=== PATIENT | male | born 1995 | race Caucasian/White ===

== ENCOUNTER 2017-03-03 17:14 | Emergency (ER) | payer BC ==
--- NOTE | 2017-03-03 17:56 | UC ---
Dental HPI - HPI Summary HPI Summary: 21 yo male with DMI presents with toothache pain kept him up last night no facial swelling or fever - History of Current Complaint Chief Complaint: UCDentalProblem Stated Complaint: DENTAL PAIN Time Seen by Provider: 03/03/17 17:52 Hx Obtained From: Patient Onset/Duration: Sudden Onset, Lasting Days Severity: Moderate Pain Intensity: 6 - worse at night Pain Scale Used: 0-10 Numeric Aggravating Factor(s): Chewing Alleviating Factor(s): OTC Meds - Allergies/Home Medications Allergies/Adverse Reactions: Allergies Allergy/AdvReac Type Severity Reaction Status Date / Time Amoxicillin [From Augmentin] Allergy Rash Verified 03/03/17 17:43 Clavulanic Acid Allergy Rash Verified 03/03/17 17:43 [From Augmentin] Penicillins Allergy Unknown Verified 07/05/14 17:16 Reaction Details Home Medications: Home Medications Acetaminophen [Tylenol] 1,000 mg PO ONCE 03/03/17 [History Confirmed 03/03/17] Insulin Aspart Protamine & Asp [Novolog Mix 70/30 Prefill (70-30) 100 Unit/ml] 1 dose INFUSION SEE INSTRUCTIONS 03/03/17 [History Confirmed 03/03/17] PMH/Surg Hx/FS Hx/Imm Hx Previously Healthy: Yes Endocrine History: Diabetes - Surgical History Surgical History: None - Family History Known Family History: Positive: Hypertension, Diabetes - Social History Alcohol Use: None Substance Use Type: None Smoking Status (MU): Never Smoked Tobacco Review of Systems Constitutional: Negative Skin: Negative Eyes: Negative ENT: Dental Pain Respiratory: Negative Cardiovascular: Negative Gastrointestinal: Negative Genitourinary: Negative Motor: Negative Neurovascular: Negative Musculoskeletal: Negative Neurological: Negative Psychological: Negative Is Patient Immunocompromised?: No All Other Systems Reviewed And Are Negative: Yes Physical Exam Triage Information Reviewed: Yes Appearance: Well-Appearing, No Pain Distress, Well-Nourished Vital Signs: Initial Vital Signs Temp 98.8 F 03/03/17 17:41 Pulse 83 03/03/17 17:41 Pulse Ox 100 03/03/17 17:41 Eye Exam: Normal Eyes: Positive: Conjunctiva Clear ENT: Positive: Hearing grossly normal, Uvula midline. Negative: Nasal drainage , TMs normal, Trismus, Muffled voice, Dental tenderness Dental: Positive: Gross Decay/Caries @ Neck: Positive: Supple, Nontender, No Lymphadenopathy Respiratory: Positive: Lungs clear, Normal breath sounds, No respiratory distress Cardiovascular Exam: Normal Cardiovascular: Positive: RRR, No Murmur Neurological: Positive: Alert Psychological Exam: Normal Skin Exam: Normal Dental Complaint Course/Dx - Differential Dx/Diagnosis Provider Diagnoses: acute dentalgia Discharge - Discharge Plan Condition: Stable Disposition: HOME Prescriptions: Clindamycin Cap(NF) [Clindamycin Cap 300 mg Cap(NF)] 300 mg PO QID #28 cap Ibuprofen TAB* [Motrin TAB*] 600 mg PO Q6H PRN #40 tab PRN Reason: Pain Patient Education Materials: Toothache (ED) Referrals: Nuzhat BROUSSARD [employer] OPERATOR,Noa [Primary Care Provider] - Additional Instructions: I suggest you see your dentist for follow up recheck for new or worsening symptoms Images Dental: 1 - chipped 2 - caries
[2017-03-03 18:08] VITALS: BP 122/65
[2017-03-03] MEDS ORDERED: Clindamycin CAP* 150 MG PO ONE (18:15)
== END 2017-03-03 18:30 | disposition home or self-care (01) ==
LOC: UCEAST 17:14
DX: K08.89 Other specified disorders of teeth and supporting structures (principal); E11.9 Type 2 diabetes mellitus without complications; Z88.0 Allergy status to penicillin; Z88.1 Allergy status to other antibiotic agents; Z79.4 Long term (current) use of insulin
CPT/HCPCS: 99212; A9270-GY; G0463

== ENCOUNTER 2017-05-19 17:26 | Emergency (ER) | payer BC ==
[2017-05-19 18:00] VITALS: BP 124/62
--- NOTE | 2017-05-19 20:15 | UC ---
Skin Complaint HPI - HPI Summary HPI Summary: Patient is a 21-year-old male presenting to the with chief complaint of right upper arm itching, small erythematous pustules with surrounding erythema and hives. Symptoms began approximately 4 days ago. He denies any changes to detergents, soaps, environment or sleeping arrangements. He states he cut a dog a few days ago but denies any other changes. He endorses itching, warmth and erythema surrounding the small pustules. Denies any other pustules to the left arm or torso or lower extremities. Denies any fevers, sweats, chills. He has never had anything like this before. He has not taken anything over-the- counter for relief. - History of Current Complaint Chief Complaint: [facility] Time Seen by Provider: 05/19/17 18:13 Stated Complaint: ALLERGIC REACTION Hx Obtained From: Patient Onset/Duration: Sudden Onset Skin Exposure Onset/Duration: Hours Ago Timing: Constant Onset Severity: Mild Current Severity: Mild Pain Intensity: 0 Pain Scale Used: 0-10 Numeric Character: Swelling, Pruritus Aggravating Factor(s): Nothing Alleviating Factor(s): Nothing Related History: Insect Bite/Sting, Possible Reaction to: Animal, Possible Reaction to: Environmental Exposure - Allergy/Home Medications Allergies/Adverse Reactions: Allergies Allergy/AdvReac Type Severity Reaction Status Date / Time amoxicillin [From Augmentin] Allergy Rash Verified 05/19/17 18:01 clavulanic acid Allergy Rash Verified 05/19/17 18:01 [From Augmentin] Penicillins Allergy Unknown Verified 05/19/17 18:01 Reaction Details Review of Systems Constitutional: Negative Skin: Rash Respiratory: Negative Cardiovascular: Negative Motor: Negative Neurovascular: Negative Neurological: Negative Psychological: Negative Is Patient Immunocompromised?: No All Other Systems Reviewed And Are Negative: Yes PMH/Surg Hx/FS Hx/Imm Hx Previously Healthy: Yes - Surgical History Surgical History: None - Family History Known Family History: Positive: Hypertension, Diabetes - Social History Occupation: Employed Full-time Lives: With Family Alcohol Use: Occasionally Substance Use Type: None Smoking Status (MU): Never Smoked Tobacco Physical Exam Triage Information Reviewed: Yes Appearance: Well-Appearing, Well-Nourished Vital Signs: Initial Vital Signs Temp 98.4 F 05/19/17 17:56 Pulse 67 05/19/17 17:56 Resp 16 05/19/17 17:56 BP 124/62 05/19/17 17:56 Pulse Ox 100 05/19/17 17:56 Vital Signs Reviewed: Yes Eye Exam: Normal Neck exam: Normal Neck: Positive: Supple, No Lymphadenopathy Respiratory Exam: Normal Respiratory: Positive: Chest non-tender Musculoskeletal Exam: Normal Musculoskeletal: Positive: Strength Intact Neurological Exam: Normal Neurological: Positive: Alert Psychological: Positive: Normal Response To Family Skin: Positive: rashes Course/Dx - Course Course Of Treatment: During the course of treatment, the patient's evaluated for possible bug bites to the right side of the arm. He states he got a last week but denies any other changes. He states the dog sleeps on the left side of him, but he is endorsing the small pustules with erythematous and warm areas surrounding to the right arm. The small pustules appear to be bug bites versus fleas versus bedbugs. I have discussed this with the patient. Due to erythema and warmth around the arm, although likely an acute local reaction, I will add on doxycycline (patient allergic to amoxicillin adjacent Keflex which is preferred) for a possible bacterial component. He is given hydroxyzine for itching. He is to cleanse the area well. Hydrocortisone [id number] topical to the area. Prednisone 50 mg once daily in the morning for inflammation and itching. Patient is okay with plan and discharge and will return for any worsening or changing symptoms. - Differential Diagnoses - Skin Complaint Differential Diagnoses: Cellulitis, Scabies - I mostly over the counter, Urticaria - Diagnoses Provider Diagnoses: Bug bites Discharge - Sign-Out/Discharge Documenting (check all that apply): Discharge - Discharge Plan Condition: Stable Disposition: HOME Prescriptions: DOXYcycline CAP(*) [DOXYcycline 100MG CAP(*)] 100 mg PO BID #10 cap hydrOXYzine HCL TAB* [Atarax 10 MG TAB*] 10 mg PO TID PRN #15 tab PRN Reason: Itching predniSONE TAB* [Deltasone TAB*] 50 mg PO DAILY #5 tab MDD 1 Patient Education Materials: Insect Bite or Sting (ED) Referrals: Noa Longo RN [Primary Care Provider] - Additional Instructions: Prednisone 50mg once daily - take in the morning Doxycycline twice daily x 5 days Hydrozyxine - 10mg up to three times daily for itching Over the counter hydrocortisone topical cream for itching - [place] Disposition and Condition Condition: STABLE Disposition: HOME
== END 2017-05-19 18:35 | disposition home or self-care (01) ==
LOC: UCEAST 17:26
DX: S40.861A Insect bite (nonvenomous) of right upper arm, initial encounter (principal); W57.XXXA Bitten or stung by nonvenomous insect and other nonvenomous arthropods, initial encounter; Y93.9 Activity, unspecified; Y92.9 Unspecified place or not applicable; Z88.1 Allergy status to other antibiotic agents; Z88.0 Allergy status to penicillin
CPT/HCPCS: 99212; G0463

== ENCOUNTER 2017-06-19 13:49 | Emergency (ER) | payer BC ==
--- NOTE | 2017-06-19 15:20 | RAD ---
INDICATION: Right shoulder injury. TECHNIQUE: 4 views of the right shoulder were obtained. FINDINGS: There is soft tissue swelling adjacent to the acromioclavicular joint. There is suggestion of mild acromioclavicular joint widening. No fracture is seen. IMPRESSION: PROBABLE MILD ACROMIOCLAVICULAR JOINT SEPARATION.
--- NOTE | 2017-06-19 15:26 | RAD ---
INDICATION: Right humerus injury. TECHNIQUE: 2 views of the right humerus were obtained. FINDINGS: The bones are in normal alignment. No fracture is seen. IMPRESSION: NO EVIDENCE FOR FRACTURE.
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
[2017-06-19 16:03] VITALS: BP 120/70
== END 2017-06-19 16:02 | disposition home or self-care (01) ==
LOC: ED 13:49
DX: S43.101A Unspecified dislocation of right acromioclavicular joint, initial encounter (principal); V86.56XA Driver of dirt bike or motor/cross bike injured in nontraffic accident, initial encounter; Y92.9 Unspecified place or not applicable
CPT/HCPCS: 99282

== ENCOUNTER 2018-01-23 18:34 | Emergency (ER) | payer BC ==
[2018-01-23 18:49] VITALS: BP 153/78
[2018-01-23] MEDS ORDERED: Azithromycin TAB* 250 MG PO ONE (19:16)
[2018-01-23] MEDS ORDERED: cefTRIAXone VIAL(*) 250 MG VIAL IM ONE (19:21)
--- NOTE | 2018-01-23 19:27 | ED ---
GI/ HPI - HPI Summary HPI Summary: 22 yr old male with the complaint of painful blisters on penis. He is not circumcised. He developed the blisters about 4-5 days ago, and then began to have dysuria. He has had cloudy urethral discharge that looks like pus as well. He was sexually active with new partner unprotected sex, vaginal sex. Denies fever, chills, back pain, abdominal pain. He has no other complaints. Pain is moderate. He has no testicular or scrotal pain. - History of Current Complaint Chief Complaint: [facility] Time Seen by Provider: 01/23/18 19:00 Stated Complaint: URINARY COMPLAINT Pain Intensity: 7 - Allergy/Home Medications Allergies/Adverse Reactions: Allergies Allergy/AdvReac Type Severity Reaction Status Date / Time amoxicillin [From Augmentin] Allergy Rash Verified 01/23/18 18:49 clavulanic acid Allergy Rash Verified 01/23/18 18:49 [From Augmentin] Penicillins Allergy Unknown Verified 01/23/18 18:49 Reaction Details PMH/Surg Hx/FS Hx/Imm Hx Endocrine/Hematology History: Reports: Hx Diabetes - type I Infectious Disease History: No Infectious Disease History: Denies: Traveled Outside the [place] in Last 30 Days - Family History Known Family History: Positive: Hypertension, Diabetes - Social History Occupation: Employed Full-time Lives: With Family Alcohol Use: None Hx Substance Use: No Substance Use Type: Reports: None Hx Tobacco Use: No Smoking Status (MU): Never Smoked Tobacco Review of Systems Constitutional: Negative Positive: dysuria, discharge, other - blister on forskin penis that are painful Positive: Rash All Other Systems Reviewed And Are Negative: Yes Physical Exam Triage Information Reviewed: Yes Vital Signs On Initial Exam: Initial Vitals Temp Pulse Resp BP Pulse Ox 98.1 F 96 20 153/78 99 01/23/18 18:43 01/23/18 18:43 01/23/18 18:43 01/23/18 18:43 01/23/18 18:43 Vital Signs Reviewed: Yes Appearance: Positive: Well-Appearing, No Pain Distress Head/Face: Positive: Normal Head/Face Inspection Eyes: Positive: EOMI ENT: Positive: Pharynx normal Neck: Positive: Nontender Respiratory/Lung Sounds: Positive: Clear to Auscultation, Breath Sounds Present Cardiovascular: Positive: RRR. Negative: Murmur Abdomen Description: Positive: Nontender Male Genital Exam: Positive: No Hernia, Urethral Discharge - yellow, Other - vesicular rash penis forskin on red base.. Negative: Epididymal Tenderness, Scrotum Tenderness (R), Scrotum Tenderness (L), Testicular Tenderness (R), Testicular Tenderness (L) Musculoskeletal: Positive: Strength/ROM Intact Neurological: Positive: Sensory/Motor Intact, Alert, Oriented to Person Place, Time, CN Intact II-III Psychiatric: Positive: Normal - [place] Coma Scale Best Eye Response: 4 - Spontaneous Best Motor Response: 6 - Obeys Commands Best Verbal Response: 5 - Oriented Coma Scale Total: 15 Diagnostics - Vital Signs Vital Signs Temp Pulse Resp BP Pulse Ox 01/23/18 18:43 98.1 F 96 20 153/78 99 - Laboratory Lab Results: Lab Results 01/23/18 Range/Units 19:03 POC Urine Color Other POC Urine Clarity Slightly cloudy POC Urine pH 6.0 (5-9) POC Ur Specif T[place]te 1.015 (1.010-1.030) POC Urine Protein 1+ A (Negative) POC Ur Glucose (UA) 3+ A (Negative) POC Urine Ketones Negative (Negative) POC Urine Blood Trace-intact A (Negative) POC Urine Nitrite Negative (Negative) POC Urine Bilirubin Negative (Negative) POC Urine Urobilinogen 0.2 (Negative) POC U Leukocyte Esteras 1+ A (Negative) Lab Statement: Any lab studies that have been ordered have been reviewed, and results considered in the medical decision making process. GIGU Course/Dx - Course Course Of Treatment: 22 yr old who has only had a rash from penicillins in the past but never IGE mediated anaphylaxis reactions. Will Rx with rocephin, zithromax, and start on valtrex. cultures pending. - Diagnoses Provider Diagnoses: Herpes genitalis in men, STD (male), Hypertension Discharge - Sign-Out/Discharge Documenting (check all that apply): Patient Departure All imaging exams completed and their final reports reviewed: No Studies - Discharge Plan Condition: Good Disposition: HOME Prescriptions: ValACYclovir (*) [Valtrex 1 GM(*)] 1 gm PO TID #21 tab Patient Education Materials: Genital Herpes Simplex (ED), Nonspecific Urethritis in Men (ED), Sexually Transmitted Diseases (ED), Hypertension (ED) Referrals: Noa Longo RN [Primary Care Provider] - 2 Days - Billing Disposition and Condition Condition: GOOD Disposition: Home
== END 2018-01-23 19:58 | disposition home or self-care (01) ==
LOC: UCCORT 18:34
DX: A60.01 Herpesviral infection of penis (principal); A64 Unspecified sexually transmitted disease; I10 Essential (primary) hypertension; E10.8 Type 1 diabetes mellitus with unspecified complications; Z88.8 Allergy status to other drugs, medicaments and biological substances; Z88.0 Allergy status to penicillin
CPT/HCPCS: 81003; 87086; 87491; 87591; 87661; 96372; 99212; A9270-GY; G0463; J0696

== ENCOUNTER 2018-01-30 20:46 | Emergency (ER) | payer BC ==
--- NOTE | 2018-01-30 20:49 | UC ---
Complaint Male HPI - HPI Summary HPI Summary: 22 yo male presents with continued discomfort during urination and raw/redness at the tip of his penis and foreskin. He was seen 1 week ago and dx'd with herpes and treated for gc/c. His urine culture showed no growth and was negative for GC/C and trich. He was also treated for herpes with antivirals as the red lesions appeared to herpes in nature. He tells me today that his symptoms have not changed and took an "at home UTI test" that was positive. He denies fever, chills, hematuria, abdominal pain, n/v, testicular pain. - History of Current Complaint Stated Complaint: POSS UTI Time Seen by Provider: 01/30/18 20:49 Hx Obtained From: Patient Onset/Duration: Gradual Onset Severity Initially: Mild Severity Currently: Mild Pain Intensity: 2 Pain Scale Used: 0-10 Numeric - Allergies/Home Medications Allergies/Adverse Reactions: Allergies Allergy/AdvReac Type Severity Reaction Status Date / Time amoxicillin [From Augmentin] Allergy Rash Verified 01/30/18 20:53 clavulanic acid Allergy Rash Verified 01/30/18 20:53 [From Augmentin] Penicillins Allergy Unknown Verified 01/30/18 20:53 Reaction Details PMH/Surg Hx/FS Hx/Imm Hx Endocrine History: Diabetes - Surgical History Surgical History: None - Family History Known Family History: Positive: Hypertension, Diabetes - Social History Lives: With Family Alcohol Use: None Substance Use Type: None Smoking Status (MU): Never Smoked Tobacco Review of Systems All Other Systems Reviewed And Are Negative: Yes Constitutional: Positive: Negative Skin: Positive: Negative Respiratory: Positive: Negative Cardiovascular: Positive: Negative Gastrointestinal: Positive: Negative Genitourinary: Positive: Dysuria, Vaginal/Penile Discharge, Vaginal/Penile Pain Neurovascular: Positive: Negative Neurological: Positive: Negative Psychological: Positive: Negative Physical Exam - Summary Physical Exam Summary: GENERAL: NAD. WDWN. No pain distress. NECK: Supple. Nontender. No lymphadenopathy. CHEST: CTAB. No r/r/w. No accessory muscle use. Breathing comfortably and in no distress. CV: RRR. Without m/r/g. Pulses intact. Cap refill <2seconds ABDOMEN: Soft. NTTP. No distention or guarding. Bowel sounds present NEURO: Alert. PSYCH: Age appropriate behavior. Triage Information Reviewed: Yes Vital Signs: Vital Signs: Temp Pulse Resp BP Pulse Ox 98.6 F 90 18 151/73 97 01/30/18 20:50 01/30/18 20:50 01/30/18 20:50 01/30/18 20:50 01/30/18 20:50 Laboratory Tests 01/30/18 20:58 POC Urine Color Yellow POC Urine Clarity Clear POC Urine pH 5.5 POC Ur Specif [place] 1.010 POC Urine Protein Negative POC Ur Glucose (UA) 1+ A POC Urine Ketones Negative POC Urine Blood Trace-intact A POC Urine Nitrite Negative POC Urine Bilirubin Negative POC Urine Urobilinogen 0.2 POC U Leukocyte Esteras Trace A Vital Signs Reviewed: Yes Male Genital Exam: Positive: Erythema - glans penis and underside of uncircumcised foreskin, Urethral Discharge - glans penis thin white discharge with mild odor and along uncircumcised foreskin. Negative: Epididymal Tenderness, Inguinal Tenderness, Scrotum Tenderness (R), Scrotum Tenderness (L) , Testicular Tenderness (R), Testicular Tenderness (L) Complaint Male Course/Dx - Course Course Of Treatment: Suspect balanoposthitis. His UA today had trace leuks, but suspect this is from the external inflammation/infection instead of the actual urine/bladder - reinforced by the fact that his urine culture had no growth 1 week ago and had trace leuks at that time as well. Given his type 1 diabetes, the most likely cause of his balanoposthitis is yeast, therefore I have obtained a swab for culture. This, however, could also be caused by strep or anarobes. I will cover him for yeast with diflucan - given 200mg in the clinic this evening. And cover him for strep/anarobes with clindamycin for 7 days. Advised to f/u with PCP for a recheck if no improvement. - Differential Dx/Diagnosis Provider Diagnosis: Balanoposthitis Discharge - Sign-Out/Discharge Documenting (check all that apply): Patient Departure All imaging exams completed and their final reports reviewed: No Studies - Discharge Plan Condition: Stable Disposition: HOME Prescriptions: Clindamycin Cap(NF) [Clindamycin Cap 300 mg Cap(NF)] 300 mg PO TID #21 cap Patient Education Materials: Balanitis (ED) Referrals: Noa Longo RN [Primary Care Provider] - 2 Weeks Additional Instructions: If you develop a fever, shortness of breath, chest pain, new or worsening symptoms - please call your PCP or go to the ED. Your blood pressure was mildly elevated at todays visit. Please see your primary provider within 4 weeks for recheck and re-evaluation. - Billing Disposition and Condition Condition: STABLE Disposition: Home
[2018-01-30 20:53] VITALS: BP 151/73
[2018-01-30] MEDS ORDERED: Fluconazole 150 MG TAB PO ONE (21:13)
[2018-01-30] MEDS ORDERED: Fluconazole 100 MG TAB* TAB PO ONE (21:16)
== END 2018-01-30 21:30 | disposition home or self-care (01) ==
LOC: UCEAST 20:46
DX: N47.6 Balanoposthitis (principal); E11.9 Type 2 diabetes mellitus without complications; Z88.0 Allergy status to penicillin; Z88.1 Allergy status to other antibiotic agents
CPT/HCPCS: 81003; 87086; 87480; 87510; 99212; A9270-GY; G0463

== ENCOUNTER 2018-07-06 12:51 | Emergency (ER) | payer BC ==
[2018-07-06 13:19] VITALS: BP 118/65
--- NOTE | 2018-07-06 13:49 | UC ---
Complaint Male HPI - HPI Summary HPI Summary: 22 yo male presents requesting testing for GC/C. He tells me that he was last sexually active with his ex-girlfriend about a week ago. Today she called him and told him that she has chlamydia. Pt has no symptoms, but was advised to be tested and treated - prompting his visit to today. - History of Current Complaint Chief Complaint: UCSTDScreening Stated Complaint: PERSONAL Time Seen by Provider: 07/06/18 13:49 Hx Obtained From: Patient Onset/Duration: Sudden Onset Severity Currently: None Pain Intensity: 0 - Allergies/Home Medications Allergies/Adverse Reactions: Allergies Allergy/AdvReac Type Severity Reaction Status Date / Time amoxicillin [From Augmentin] Allergy Rash Verified 07/06/18 13:20 clavulanic acid Allergy Rash Verified 07/06/18 13:20 [From Augmentin] Penicillins Allergy Unknown Verified 07/06/18 13:20 Reaction Details PMH/Surg Hx/FS Hx/Imm Hx Endocrine History: Diabetes - Surgical History Surgical History: None - Family History Known Family History: Positive: Hypertension, Diabetes - Social History Occupation: Employed Full-time Lives: With Family Alcohol Use: None Substance Use Type: None Smoking Status (MU): Heavy Every Day Tobacco Smoker Type: Cigarettes Review of Systems All Other Systems Reviewed And Are Negative: Yes Constitutional: Positive: Negative Skin: Positive: Negative Respiratory: Positive: Negative Cardiovascular: Positive: Negative Genitourinary: Positive: Negative Neurological: Positive: Negative Psychological: Positive: Negative Physical Exam - Summary Physical Exam Summary: GENERAL: NAD. WDWN. No pain distress. SKIN: No rashes, abscess, or lesions appreciated NECK: Supple. Nontender. No lymphadenopathy. CHEST: No accessory muscle use. Breathing comfortably and in no distress. CV: Pulses intact. Cap refill <2seconds NEURO: Alert. PSYCH: Age appropriate behavior. Triage Information Reviewed: Yes Vital Signs: Initial Vital Signs Temp 98.8 F 07/06/18 13:17 Pulse 71 07/06/18 13:17 Resp 17 07/06/18 13:17 BP 118/65 07/06/18 13:17 Pulse Ox 100 07/06/18 13:17 Vital Signs Reviewed: Yes Complaint Male Course/Dx - Course Course Of Treatment: Declined genital exam as he has no symptoms. Urine was sent for GC/C testing. He wast treated with 1gm Azithromycin in the clinic as he has a known exposure to chlamydia. No ceftriaxone was given. - Differential Dx/Diagnosis Provider Diagnosis: Exposure to chlamydia Discharge - Sign-Out/Discharge Documenting (check all that apply): Patient Departure All imaging exams completed and their final reports reviewed: No Studies - Discharge Plan Condition: Stable Disposition: HOME Patient Education Materials: Chlamydia (ED) Referrals: Nuzhat BROUSSARD [employer],Noa [Primary Care Provider] - Additional Instructions: You were treated for chlamydia today in the clinic. Your testing from a few months ago was all normal, but you have been tested for gonorrhea and chlamydia today. - Billing Disposition and Condition Condition: STABLE Disposition: Home
[2018-07-06] MEDS ORDERED: Azithromycin TAB* 250 MG PO ONE (13:57)
[2018-07-07 12:36] LABS: Neisseria gonorrhoeae (GC) RNA Negative (Negative)
== END 2018-07-06 14:07 | disposition home or self-care (01) ==
LOC: UCEAST 12:51
DX: Z20.2 Contact with and (suspected) exposure to infections with a predominantly sexual mode of transmission (principal); F17.210 Nicotine dependence, cigarettes, uncomplicated; Z88.1 Allergy status to other antibiotic agents; Z88.0 Allergy status to penicillin; E11.9 Type 2 diabetes mellitus without complications
CPT/HCPCS: 87491; 87591; A9270-GY

== ENCOUNTER 2018-08-29 15:07 | Emergency (ER) | payer BC ==
[2018-08-29 15:23] VITALS: BP 126/70
--- NOTE | 2018-08-29 15:28 | UC ---
Complaint Male HPI - HPI Summary HPI Summary: 22 yo male presents with questions about HIV. He tells me that a few months ago he was exposed to chlamydia and has some burning with urination and a swollen lymph node - was treated and symptoms resolved within days. He recently has gotten a new girlfriend and is concerned if he has HIV. He has no symptoms. Denies weight loss, fatigue, night sweats, enlarged lymph nodes, fevers, abdominal pain, n/v, dysuria. - History of Current Complaint Chief Complaint: UCGU Stated Complaint: PERSONAL Time Seen by Provider: 08/29/18 15:28 Hx Obtained From: Patient Severity Currently: None Pain Intensity: 0 - Allergies/Home Medications Allergies/Adverse Reactions: Allergies Allergy/AdvReac Type Severity Reaction Status Date / Time amoxicillin [From Augmentin] Allergy Rash Verified 08/29/18 15:23 clavulanic acid Allergy Rash Verified 08/29/18 15:23 [From Augmentin] Penicillins Allergy Unknown Verified 08/29/18 15:23 Reaction Details PMH/Surg Hx/FS Hx/Imm Hx - Additional Past Medical History Additional PMH: Diabetes - Surgical History Surgical History: None - Family History Known Family History: Positive: Hypertension, Diabetes - Social History Occupation: Employed Full-time Alcohol Use: Occasionally Substance Use Type: None Smoking Status (MU): Current Every Day Smoker Type: Cigarettes Amount Used/How Often: 1 PPD Review of Systems All Other Systems Reviewed And Are Negative: Yes Constitutional: Positive: Negative Skin: Positive: Negative Eyes: Positive: Negative ENT: Positive: Negative Respiratory: Positive: Negative Cardiovascular: Positive: Negative Gastrointestinal: Positive: Negative Genitourinary: Positive: Negative Motor: Positive: Negative Neurovascular: Positive: Negative Musculoskeletal: Positive: Negative Neurological: Positive: Negative Psychological: Positive: Negative Physical Exam - Summary Physical Exam Summary: GENERAL: NAD. WDWN. No pain distress. SKIN: No rashes, sores, or open wounds. HEENT: Head: AT/NC Eyes: PERRLA. EOM intact. Conjunctiva clear without inflammation or discharge. Ears: Hearing grossly normal. TMs intact, no bulging, erythema, or edema. Nose: Nasal mucosa pink and moist. NTTP maxillary and frontal sinus. Throat: Posterior oropharynx without exudates, erythema, or tonsillar enlargement. Uvula midline. NECK: Supple. Nontender. No lymphadenopathy. CHEST: CTAB. No r/r/w. No accessory muscle use. Breathing comfortably and in no distress. CV: RRR. Without m/r/g. Pulses intact. Brisk cap refill. ABDOMEN: Soft. NTTP. No distention or guarding. No CVA tenderness. Bowel sounds present NEURO: Alert. PSYCH: Age appropriate behavior. Triage Information Reviewed: Yes Vital Signs: Initial Vital Signs Temp 97.8 F 08/29/18 15:20 Pulse 68 08/29/18 15:20 Resp 16 08/29/18 15:20 BP 126/70 08/29/18 15:20 Pulse Ox 98 08/29/18 15:20 Vital Signs Reviewed: Yes Complaint Male Course/Dx - Course Course Of Treatment: He has no symptoms that would indicate HIV. I discussed with him HIV signs and symptoms and offered HIV testing today, but he declined due to intense fear of needles/blood draws. I told him that there is an oral swab over the counter that has great reliability for HIV testing and he says he will do this and if it is positive or invalid will seek medical eval. I also informed him the health department offers free HIV fingerstick testing. - Differential Dx/Diagnosis Provider Diagnosis: Unprotected sexual intercourse Discharge - Sign-Out/Discharge Documenting (check all that apply): Patient Departure All imaging exams completed and their final reports reviewed: No Studies - Discharge Plan Condition: Stable Disposition: HOME Patient Education Materials: HIV Transmission (ED), HIV Infection (ED) Referrals: No Primary Care Phys,NOPCP [Primary Care Provider] - Additional Instructions: If you develop a fever, shortness of breath, chest pain, new or worsening symptoms - please call your PCP or go to the ED immediately. You do not have any symptoms that causes concern for HIV. I recommend that you use an [id number] HIV oral test kit. (Jhoana) [facility] at [address] [place] [address] also offers FREE HIV testing via a fingerstick. - Billing Disposition and Condition Condition: STABLE Disposition: Home
== END 2018-08-29 16:00 | disposition home or self-care (01) ==
LOC: UCEAST 15:07
DX: Z72.51 High risk heterosexual behavior (principal); F17.210 Nicotine dependence, cigarettes, uncomplicated; Z88.0 Allergy status to penicillin
CPT/HCPCS: 99211; G0463

== ENCOUNTER 2021-06-20 00:11 | Inpatient (IN) ==
[2021-06-20] MEDS ORDERED: Lactated Ringers 1000 ml BAG 1,000 ML IV ONE ×2 (00:41→01:48)
[2021-06-20 00:44] LABS: ABS Basophils 0.1 10^3/ul (0-0.2); ABS Lymphocytes 2.2 10^3/ul (1.0-4.8); ABS Monocytes 0.5 10^3/ul (0-0.8); ABS Neutrophils 14.3 10^3/ul (1.5-7.7); ABS Nucleated RBC 0.1 10^3/ul; Eosinophil % 0.1 %; Hematocrit 54 % (42-52); Hemoglobin 18.3 g/dL (14.0-18.0); Lymphocyte % 12.8 %; Mean Corpuscular HGB Conc 34 g/dL (31-36); Mean Corpuscular Hemoglobin 30 pg (27-31); Mean Corpuscular Volume 87 fL (80-94); Mean Platelet Volume 7.5 fL (7.4-10.4); Nucleated Red Blood Cells % 0.3; Platelet Count 482 10^3/uL (150-450); Red Blood Count 6.18 10^6 /uL (4.18-5.48); Red Cell Distribution Width 13 % (10-15); White Blood Count 17.2 10^3/uL (3.5-10.8)
[2021-06-20 00:45] LABS: Venous Bicarbonate HCO3 6.8 mmol/L (24-28)
[2021-06-20 01:17] LABS: Blood Urea Nitrogen 17 mg/dL (6-24); Calcium 10.2 mg/dL (8.6-10.3); Chloride 88 mmol/L (101-111); Globulin 3.4 g/dL (2-4); Glucose 425 mg/dL (70-100); Sodium 126 mmol/L (135-145); Total Protein 8.4 g/dL (6.4-8.9); eGFR CKD-EPI 59.9 (>60)
[2021-06-20 01:18] LABS: ALT 30 U/L (7-52); AST 29 U/L (13-39); Albumin/Globulin Ratio 1.5 (1-3); Alkaline Phosphatase 94 U/L (35-149); C Reactive Protein < 1.00 mg/L (<8.01); Potassium 5.8 mmol/L (3.5-5.0)
[2021-06-20 01:20] LABS: Anion Gap 30 mmol/L (2-11); CO2 Carbon Dioxide 8 mmol/L (22-32)
[2021-06-20] MEDS ORDERED: Dextrose 50% Syringe 50 ml 25 GM/50 ML SYRINGE IV PUSH PRN ×2 (01:46→02:50)
[2021-06-20] MEDS ORDERED: Insulin Infusion 100unit/100mL 100 UNIT/100 ML BAG IV ONE (01:46)
[2021-06-20] MEDS ORDERED: CALCIUM GLUCONATE 1GM/50ML NS 1 GM/50 ML BAG IV ONE (01:57)
[2021-06-20] MEDS ORDERED: NS 0.9% 1000 ml BAG 1,000 ML IV ONE (02:23)
[2021-06-20] MEDS ORDERED: NORMOSOL-R pH 7.4 1000 mL BAG 1,000 ML IV ONE (02:50)
[2021-06-20] MEDS ORDERED: fentaNYL 100 mcg/2 ml 50 MCG/ML VIAL IV SLOW PU PRN (02:58)
[2021-06-20] MEDS ORDERED: Morphine 2 MG/ML SYRINGE IV PRN (02:59)
[2021-06-20] MEDS ORDERED: LORazepam 2 mg VIAL 1 ml IV PUSH SCH (03:00)
[2021-06-20] MEDS ORDERED: Thiamine 100 MG/ML 2 ml VIAL (200 mg) IM ONE (03:00)
[2021-06-20 03:30] LABS: Alcohol, S < 13 mg/dL (<13); Lipase 21 U/L (11.0-82.0)
[2021-06-20] MEDS ORDERED: D5W 1/2 NS 1000 ml BAG 1,000 ML IV SCH (04:00)
[2021-06-20] MEDS ORDERED: NORMOSOL-R pH 7.4 1000 mL BAG 1,000 ML IV SCH (04:00)
[2021-06-20 05:12] LABS: Calcium 8.9 mg/dL (8.6-10.3); Magnesium 2.1 mg/dL (1.9-2.7); Phosphorus 4.4 mg/dL (2.5-5.0); Potassium 4.8 mmol/L (3.5-5.0); eGFR CKD-EPI 64.1 (>60)
[2021-06-20 06:50] LABS: Hematocrit 45 % (42-52); Hemoglobin 15.4 g/dL (14.0-18.0); Mean Corpuscular HGB Conc 34 g/dL (31-36); Mean Corpuscular Hemoglobin 30 pg (27-31); Mean Corpuscular Volume 87 fL (80-94); Mean Platelet Volume 7.8 fL (7.4-10.4); Platelet Count 338 10^3/uL (150-450); Red Blood Count 5.17 10^6 /uL (4.18-5.48); Red Cell Distribution Width 13 % (10-15); White Blood Count 16.7 10^3/uL (3.5-10.8)
[2021-06-20 07:29] LABS: Urine Appearance Clear; Urine Bilirubin Negative (Negative); Urine Blood 2+ (Negative); Urine Color Straw; Urine Glucose 3+(>=500 mg/dL) (Negative); Urine Ketones 2+ (Negative); Urine Nitrite Negative (Negative); Urine Protein 1+(30 mg/dL) (Negative); Urine Specific Gravity 1.011 (1.002-1.030); Urine Urobilinogen Negative (Negative)
[2021-06-20 07:33] LABS: Urine Benzodiazepine Screen None Detected (None Detect); Urine Cannabinoids Screen None Detected (None Detect); Urine Opiates Screen None Detected (None Detect)
[2021-06-20 07:34] LABS: Urine Bacteria Absent (Absent); Urine Red Blood Cell Absent (Absent); Urine White Blood Cell Trace(0-5/hpf) (Absent)
[2021-06-20] MEDS: Multivitamins/Minerals TAB PO SCH (08:04)
[2021-06-20 11:00] LABS: Calcium 7.9 mg/dL (8.6-10.3); Magnesium 1.7 mg/dL (1.9-2.7); Phosphorus 2.8 mg/dL (2.5-5.0); Potassium 3.9 mmol/L (3.5-5.0); eGFR CKD-EPI 84.6 (>60)
[2021-06-20] MEDS ORDERED: Magnesium Sulfate 2 gm BAG 2 GM/50 ML BAG IVPB ONE ×2 (11:33→21:52)
[2021-06-20] MEDS: D5W 1/2 NS 40 Meq KCL 1000 ml 1,000 ML IV SCH ×2 (11:42→19:16)
[2021-06-20] MEDS ORDERED: Magnesium Sulfate 2 gm BAG 2 GM/50 ML BAG ONE (11:46)
[2021-06-20 15:01] LABS: Calcium 8.4 mg/dL (8.6-10.3); Magnesium 2.2 mg/dL (1.9-2.7); Phosphorus 3.8 mg/dL (2.5-5.0); eGFR CKD-EPI 81.4 (>60)
[2021-06-20 20:19] LABS: Calcium 8.3 mg/dL (8.6-10.3); Magnesium 1.7 mg/dL (1.9-2.7); eGFR CKD-EPI 82.2 (>60)
[2021-06-20 20:30] LABS: Phosphorus 2.2 mg/dL (2.5-5.0); Potassium 4.1 mmol/L (3.5-5.0)
[2021-06-20] MEDS ORDERED: Insulin LISPRO* FOR INSULIN PUMP SUBCUT SCH (21:00)
[2021-06-20] MEDS ORDERED: Sodium Phosphate IV 10 MMOLE in NS 0.9% 250 ml 250 ML IV ONE (22:15)
[2021-06-20 23:26] LABS: Calcium 7.7 mg/dL (8.6-10.3); Magnesium 1.6 mg/dL (1.9-2.7); Phosphorus 1.9 mg/dL (2.5-5.0); eGFR CKD-EPI 95.7 (>60)
[2021-06-20 23:28] LABS: Potassium 7.2 mmol/L (3.5-5.0)
[2021-06-20] MEDS ORDERED: Dextrose 50% Syringe 50 ml 25 GM/50 ML SYRINGE IV PUSH ONE (23:49)
[2021-06-21 02:02] LABS: Calcium 8.4 mg/dL (8.6-10.3); Magnesium 2.4 mg/dL (1.9-2.7); Phosphorus 2.3 mg/dL (2.5-5.0); Potassium 3.5 mmol/L (3.5-5.0); eGFR CKD-EPI 105.9 (>60)
[2021-06-21 04:47] LABS: ABS Eosinophils 0.1 10^3/ul (0-0.6); ABS Lymphocytes 1.5 10^3/ul (1.0-4.8); ABS Monocytes 0.7 10^3/ul (0-0.8); ABS Neutrophils 6.2 10^3/ul (1.5-7.7); Hematocrit 44 % (42-52); Hemoglobin 15.5 g/dL (14.0-18.0); Lymphocyte % 17.6 %; Mean Corpuscular HGB Conc 35 g/dL (31-36); Mean Corpuscular Hemoglobin 30 pg (27-31); Mean Corpuscular Volume 85 fL (80-94); Nucleated Red Blood Cells % 0.2; Platelet Count 269 10^3/uL (150-450); Red Blood Count 5.19 10^6 /uL (4.18-5.48); Red Cell Distribution Width 13 % (10-15); White Blood Count 8.6 10^3/uL (3.5-10.8)
[2021-06-21 05:16] LABS: HDL Cholesterol 49.4 mg/dL
[2021-06-21] MEDS ORDERED: Sodium Phosphate IV 10 MMOLE in NS 0.9% 250 ml 250 ML IV ONE (06:30)
[2021-06-21 07:35] LABS: Calcium 7.9 mg/dL (8.6-10.3); Magnesium 1.8 mg/dL (1.9-2.7); Potassium 3.6 mmol/L (3.5-5.0); eGFR CKD-EPI 123.9 (>60)
[2021-06-21] MEDS ORDERED: Magnesium Sulfate 2 gm BAG 2 GM/50 ML BAG IVPB ONE (07:38)
[2021-06-21] MEDS: Multivitamins/Minerals TAB PO SCH (08:01)
[2021-06-21 14:46] LABS: ABS Eosinophils 0.1 10^3/ul (0-0.6); ABS Lymphocytes 1.7 10^3/ul (1.0-4.8); ABS Monocytes 0.5 10^3/ul (0-0.8); ABS Neutrophils 3.7 10^3/ul (1.5-7.7); Eosinophil % 1.5 %; Hematocrit 43 % (42-52); Hemoglobin 15.1 g/dL (14.0-18.0); Lymphocyte % 27.8 %; Mean Corpuscular HGB Conc 35 g/dL (31-36); Mean Corpuscular Hemoglobin 30 pg (27-31); Mean Corpuscular Volume 86 fL (80-94); Mean Platelet Volume 7.2 fL (7.4-10.4); Platelet Count 269 10^3/uL (150-450); Red Blood Count 4.96 10^6 /uL (4.18-5.48); Red Cell Distribution Width 13 % (10-15); White Blood Count 6.1 10^3/uL (3.5-10.8)
[2021-06-21 15:14] LABS: Calcium 8.4 mg/dL (8.6-10.3); Magnesium 2.1 mg/dL (1.9-2.7); Phosphorus 3.1 mg/dL (2.5-5.0); Potassium 3.9 mmol/L (3.5-5.0); eGFR CKD-EPI 86.3 (>60)
[2021-06-21] MEDS: INSULIN PUMP CONTROLLER SCH ×2 (19:29→19:30)
[2021-06-22] MEDS: Multivitamins/Minerals TAB PO SCH (08:30)
[2021-06-22 09:34] LABS: Calcium 8.6 mg/dL (8.6-10.3); Potassium 3.7 mmol/L (3.5-5.0)
[2021-06-22 09:40] LABS: eGFR CKD-EPI 126.1 (>60)
[2021-06-22 15:16] VITALS: BP 151/85
== END 2021-06-22 17:30 | disposition home or self-care (01) | DRG 420 ==
LOC: ED 00:11 → SUATTDRO 02:08 → EDHOLD 02:08 → ICU 03:04 → SSU 06-21 13:15
PROVIDERS: ADMIT Internal Medicine; ATTEND Internal Medicine